=== PATIENT | male | born 1960 | race Caucasian/White ===

== ENCOUNTER 2025-06-07 16:21 | Observation (INO) ==
--- NOTE | 2025-06-07 16:44 | Emergency Department Note ---
History of Present Illness General Chief complaint: Abdominal Pain Stated complaint: ABD PAIN Time Seen by Provider: 06/07/25 16:42 History of Present Illness Maximum Pain Intensity: 6 This is a 65-year-old male that presents to the emergency department via private vehicle with complaints of "abdominal pain". The patient notes that today he awoke with "massive" lower abdominal discomfort. He has never had this before. He felt diaphoretic and hot. He then notes the lower abdominal pain has somewhat improved but currently still 6/10. It does increase with movement and walking. No chest pain. No shortness of breath. Patient denies any fevers, chills, nausea or vomiting. There is no chest pain or shortness of breath. No blood in the stool. Home Medications Medication Instructions Recorded Confirmed Type esomeprazole magnesium 40 mg 40 mg PO QAM 05/27/19 06/07/25 History capsule,delayed release multivitamin with minerals-folic 200 mcg PO QAM 05/27/19 06/07/25 History acid 200 mcg chewable tablet (Adult Multivitamin Gummies) metoprolol succinate 50 mg 75 mg PO QAM 12/24/21 06/07/25 History tablet,extended release 24 hr diltiazem HCl 300 mg 300 mg PO QAM 06/07/25 06/07/25 History capsule,extended release 24 hr losartan 25 mg tablet 12.5 mg PO QAM 06/07/25 06/07/25 History Allergies Allergy/AdvReac Type Severity Reaction Status Date / Time No Known Allergies Verified 06/07/25 19:34 Past Med/Surg History Problem List (Updated 06/07/25 @ 22:03 by Wilfred Hurley PA-C) History of atrial fibrillation COPD (chronic obstructive pulmonary disease) Hypertension Acute diverticulitis (Acute) Contusion of abdominal wall (Acute) Medical History Medial meniscus tear No pertinent family history Surgical History No pertinent past surgical history Social History Smoking Status: Current every day smoker Tobacco Type: Cigarettes Preferred Language: Yoruba Feels Safe at Home: Yes Review of Systems A total of 10 systems reviewed and were otherwise negative Physical Exam Vital Signs Vital Signs - 24 hr 06/07/25 16:33 06/07/25 17:12 06/07/25 17:43 Temperature 36.7 C Temperature Source Oral Pulse Rate 101 H 95 H Pulse Rate [Apical] 94 H Respiratory Rate 20 16 Respiratory Effort / Characteristics Non-Labored Non-Labored Spontaneous Respiratory Depth Normal Normal Respiratory Pattern Regular Blood Pressure 144/88 H Blood Pressure [Right Arm] 140/95 Blood Pressure Mean 106 Blood Pressure Mean [Right Arm] 110 Blood Pressure Position [Right Arm] Lying Pulse Oximetry 96 95 Oxygen Delivery Method Room Air Room Air Sepsis Recent Fever Within 48 Hours No Sepsis New/Unexplained Change in Mental Status No Sepsis Action Taken by Nursing No Action Required VITAL SIGNS - Vital signs and nursing notes were reviewed. Stable and afebrile. GENERAL -65-year-old male appearing his stated age who is in no acute distress. Communicates well with provider and answers questions appropriately. SKIN - Without rashes. No meningeal or petechial rash. HEAD - NC/AT. EYES - PERRL with EOMI bilaterally. Sclera anicteric. EARS - No deformities of external structures noted on gross examination bilaterally. NOSE - Midline and without cyanosis. MOUTH/OROPHARYNX - Without perioral cyanosis. NECK - Neck with FROM.No nuchal rigidity. LUNGS - CTA CARDIAC - RRR ABDOMEN - Abdominal contour normal without pulsations or visible masses. BS normoactive all four quadrants. There is lower abdominal tenderness to palpation. No guarding. No rigidity. No palpable masses, hepatosplenomegaly, or ascites noted. EXTREMITIES - No clubbing or peripheral cyanosis. +5/5 strength noted in UE/LE bilaterally. NEUROLOGIC - Cranial nerves II through XII grossly intact. PSYCH -alert, oriented and pleasant on exam. Course Administered Medications Heparin Sodium (Porcine) (Heparin Sod 5,000 Unit/0.5 Ml Vial) 5,000 units SQ Q12 FREYA Stop: 07/07/25 20:59 Last Admin: 06/07/25 21:59 Dose: Not Given Documented By: BERNY Potassium Chloride/Sodium Chloride (Normal Saline W/20 Meq Kcl) 20 meq in 1,000 mls @ 125 mls/hr IV .Q8H FREYA Stop: 06/08/25 20:29 Last Admin: 06/07/25 21:58 Dose: 125 mls/hr Documented By: BERNY Discontinued Medications Sodium Chloride (Nss) 500 mls @ 500 mls/hr IV .Q1H ONE Stop: 06/07/25 17:54 Last Infusion: 06/07/25 20:53 Dose: Infused Documented By: Admin: 06/07/25 17:45 Dose: 500 mls/hr Documented By: JEIMY Piperacillin Sod/Tazobactam Sod (Zosyn) 4.5 gm in 100 mls @ 200 mls/hr IV NOW ONE; Protocol Stop: 06/07/25 19:33 Last Infusion: 06/07/25 20:53 Dose: Infused Documented By: Admin: 06/07/25 19:45 Dose: 200 mls/hr Documented By: SPRING Ioversol (Optiray 320 100ml) 92 ml IV ONCE ONE Stop: 06/07/25 18:06 Last Admin: 06/07/25 18:05 Dose: 92 ml Documented By: WALLACE Medical Decision Making Laboratory Data 06/07/25 16:34 06/07/25 16:34 Lab Results 06/07/25 Range/Units 16:34 WBC 17.04 H (4.8-10.8) K/ul RBC 4.65 L (4.70-6.10) M/uL Hgb 15.5 (14.0-18.0) g/dl Hct 43.1 (42.0-52.0) % MCV 92.7 (80.0-100.0) fL MCH 33.3 (25.0-34.0) pg MCHC 36.0 (32.0-36.0) g/dL RDW Std Deviation 41.7 (36.4-46.3) fL RDW Coeff of Kallie 12.3 (11.5-14.5) % Plt Count 289 (130-400) K/uL MPV 9.0 L (9.4-12.4) fL Immature Gran % (Auto) 0.6 % Neut % (Auto) 74.2 % Lymph % (Auto) 14.0 % Rowan % (Auto) 10.7 % Eos % (Auto) 0.2 % Baso % (Auto) 0.3 % Neut # (Auto) 12.64 H (1.40-6.50) K/uL Lymph # (Auto) 2.39 (1.20-3.40) K/uL Rowan # (Auto) 1.83 H (0.11-0.59) K/uL Eos # (Auto) 0.03 (0.00-0.50) K/uL Baso # (Auto) 0.05 (0.00-0.20) K/uL Immature Gran # (Auto) 0.10 (0.01-0.20) K/uL PT 10.5 (9.0-12.0) Seconds INR 1.0 (0.9-1.1) APTT 27 (21-31) Seconds PTT Ratio 1.0 Sodium 140 (136-145) mmol/L Potassium 3.6 (3.5-5.1) mmol/L Chloride 103 (98-107) mmol/L Carbon Dioxide 28 (21-32) mmol/L Anion Gap 9 (3-11) BUN 6 (6-23) mg/dl Creatinine 0.76 (0.6-1.4) mg/dl Est Cr Clr Drug Dosing 83.0 ml/min eGFR 101.00 BUN/Creatinine Ratio 7.9 L (10-20) Glucose 115 H (70-99(Fasting)) mg/dl Calcium 8.8 (8.6-10.3) mg/dl Total Bilirubin 1.0 (0.2-1.0) mg/dl AST 37 (13-39) U/L ALT 44 (7-52) U/L Alkaline Phosphatase 69 (34-104) U/L Total Protein 6.5 (6.0-8.3) gm/dl Albumin 3.8 (3.4-5.0) gm/dl Globulin 2.7 (2.5-4.0) gm/dl Albumin/Globulin Ratio 1.4 (0.9-2) Imaging Data Radiologist's Impression: Abdomen/Pelvis CT 06/07/25 16:55 EXAMINATION: CT of the abdomen and pelvis performed after the administration of IV contrast TECHNIQUE: Helical CT images from the lung bases through the symphysis pubis were obtained with contrast. Coronal and sagittal reformatted images were generated at a workstation for further assessment. Dose reduction techniques were achieved by using automatic exposure control and/or adjustment of mA and/or kV according to patient size and/or use of iterative reconstruction technique. COMPARISON: None HISTORY: Abdominal pain FINDINGS: Lower chest: No consolidation. No pleural effusion or pneumothorax. Liver: No suspicious liver lesions. Portal veins appear patent. Gallbladder: No gallstones. No evidence of acute cholecystitis. Spleen: Normal size. Pancreas: No suspicious pancreatic lesions. The pancreatic duct is not dilated. Adrenal glands: No adrenal nodules. Kidneys: No hydronephrosis or obstructing renal stones. Bladder / Pelvic organs: Unremarkable. Bowel: No bowel obstruction. Prominent wall thickening and inflammatory fat stranding noted throughout the sigmoid colon where there are inflamed diverticula identified. The findings are compatible with acute diverticulitis. No associated free air or abscess to suggest perforation. The appendix is not visualized. Lymph nodes: No retroperitoneal, mesenteric, or pelvic lymphadenopathy. Peritoneum / Retroperitoneum: No free fluid or air within the abdomen. Vessels: No infrarenal aortic aneurysm. Bones and soft tissues: No suspicious lesion in the bones. IMPRESSION: Prominent wall thickening and inflammatory fat stranding noted throughout the sigmoid colon where there are inflamed diverticula identified. The findings are compatible with acute diverticulitis. No associated free air or abscess to suggest perforation. Electronically signed by Jignesh Patricia 06-07-2025 6:49 PM MDM Narrative Patient was seen and evaluated as above in room A09. Review was performed of triage nursing notes and vital signs. After obtaining a thorough history and physical examination the above work up was performed. Patient presents to us today for evaluation of abdominal pain. There is associated decreased oral intake today. Options of care were discussed with the patient. IV access was established. Labs were drawn. He was offered analgesia and respectfully declined. There is leukocytosis 17.04. No anemia. No emergent metabolic disturbance. Hyperglycemia 115. Urinalysis is pending. CT scan of the abdomen and pelvis was performed and reveals diverticulitis as above. No free air. No abscess. Noting the rather rapid onset and severe pain earlier today with leukocytosis and tenderness in the lower abdomen I do believe that IV antibiotics at least initially would be warranted pending the patient's clinical course. Patient in agreement with this plan. Case discussed with the hospitalist service. Please refer to further documentation regarding his stay. In the evaluation and treatment of this patient the following differential diagnoses were entertained: UTI, pyelonephritis, diverticulitis, perforation, abscess, among others Impression & Plan Acute diverticulitis Discharge Plan Visit Data Chief Complaint: Abdominal Pain Stated Complaint: ABD PAIN ED Provider: Serafin Burden ED Midlevel Provider: Wilfred Hurley Discharge Problem: Acute diverticulitis Patient Disposition: Admitted As Inpatient Condition: Good Discharge Instructions Interventions: ED Discharge Assessment Last Done: 06/07/25 21:05
[2025-06-07 17:01] LABS: Hematocrit (blood only) 43.1 % (42.0-52.0); Hemoglobin 15.5 g/dl (14.0-18.0); Immature Granulocytes # (auto) 0.10 K/uL (0.01-0.20); Immature Granulocytes % (auto) 0.6 %; Mean Corpuscular Hemoglobin 33.3 pg (25.0-34.0); Mean Corpuscular Volume 92.7 fL (80.0-100.0); Platelet Count 289 K/uL (130-400); RDW Standard Deviation 41.7 fL (36.4-46.3); Red Blood Count 4.65 M/uL (4.70-6.10); White Blood Count 17.04 K/ul (4.8-10.8)
[2025-06-07 17:26] LABS: Alanine Aminotransferase 44.0 U/L (7-52); Albumin Globulin Ratio 1.4 (0.9-2); Alkaline Phosphatase 69.0 U/L (34-104); Anion Gap 9.0 (3-11); Bilirubin,Total 1.0 mg/dl (0.2-1.0); Blood Urea Nitrogen 6.0 mg/dl (6-23); Calcium 8.8 mg/dl (8.6-10.3); Carbon Dioxide 28.0 mmol/L (21-32); Chloride 103.0 mmol/L (98-107); Creatinine Clr Calc Pharmacy 83.0 ml/min; Globulin 2.7 gm/dl (2.5-4.0); Glucose 115.0 mg/dl (70-99(Fasting)); Potassium 3.6 mmol/L (3.5-5.1); Sodium 140.0 mmol/L (136-145); Total Protein 6.5 gm/dl (6.0-8.3)
[2025-06-07 17:29] LABS: INR 1.0 (0.9-1.1); Partial Thromboplastin Time 27 Seconds (21-31); Prothrombin Time 10.5 Seconds (9.0-12.0)
[2025-06-07] MEDS: SODIUM CHLORIDE 0.9% 500 ML IV ONE (17:45)
[2025-06-07] MEDS: OPTIRAY 320 100ml IV ONE (18:05)
--- NOTE | 2025-06-07 18:50 | CT Scan Report ---
EXAMINATION: CT of the abdomen and pelvis performed after the administration of IV contrast TECHNIQUE: Helical CT images from the lung bases through the symphysis pubis were obtained with contrast. Coronal and sagittal reformatted images were generated at a workstation for further assessment. Dose reduction techniques were achieved by using automatic exposure control and/or adjustment of mA and/or kV according to patient size and/or use of iterative reconstruction technique. COMPARISON: None HISTORY: Abdominal pain FINDINGS: Lower chest: No consolidation. No pleural effusion or pneumothorax. Liver: No suspicious liver lesions. Portal veins appear patent. Gallbladder: No gallstones. No evidence of acute cholecystitis. Spleen: Normal size. Pancreas: No suspicious pancreatic lesions. The pancreatic duct is not dilated. Adrenal glands: No adrenal nodules. Kidneys: No hydronephrosis or obstructing renal stones. Bladder / Pelvic organs: Unremarkable. Bowel: No bowel obstruction. Prominent wall thickening and inflammatory fat stranding noted throughout the sigmoid colon where there are inflamed diverticula identified. The findings are compatible with acute diverticulitis. No associated free air or abscess to suggest perforation. The appendix is not visualized. Lymph nodes: No retroperitoneal, mesenteric, or pelvic lymphadenopathy. Peritoneum / Retroperitoneum: No free fluid or air within the abdomen. Vessels: No infrarenal aortic aneurysm. Bones and soft tissues: No suspicious lesion in the bones. IMPRESSION: Prominent wall thickening and inflammatory fat stranding noted throughout the sigmoid colon where there are inflamed diverticula identified. The findings are compatible with acute diverticulitis. No associated free air or abscess to suggest perforation. Electronically signed by Jignesh Patricia 06-07-2025 6:49 PM
[2025-06-07] MEDS: PIPERACILLIN/TAZOBACTAM 4.5 GM/100 ML BAG IV ONE (19:45)
[2025-06-07] MEDS ORDERED: HYDROmorphone INJ 0.5 MG/0.5 ML SYR IV PRN (20:22)
--- NOTE | 2025-06-07 20:22 | History & Physical Report ---
Date of Service June 07, 2025 Assessment & Plan (1) Acute diverticulitis: Plan: Woke up with severe lower abdominal pain with diarrhea CT of the abdomen pelvis showed prominent wall thickening and inflammatory fat stranding throughout the sigmoid colon and they are wire inflamed diverticula consistent with acute diverticulitis without any abscess and/or perforation No sepsis -Leukocytosis of 17.04 Will be kept n.p.o. and intravenous fluid will be given IV pain medications and intravenous Zosyn Condition is stable if worsened will need surgery/GI evaluation Likely discharge in 2 to 3 days on oral antibiotic (2) Hypertension: Plan: Blood pressure remains stable and will continue with his home medication (3) COPD (chronic obstructive pulmonary disease): Plan: Does not take any inhalers Continues to smoke on a reduced number Strongly advised to quit smoking Does not want to use nicotine patch (4) History of atrial fibrillation: Plan: Remote history of atrial fibrillation/PSVT Will get EKG but denies any symptoms of that DVT prophylaxis Subcu heparin CODE STATUS Full History of Present Illness Chief Complaint: Acute lower abdominal pain since 8 AM Primary Care Provider: Familia Torres DO He is a 65-year-old male with significant past medical history of emphysema with lung nodule, hypertension, history of atrial fibrillation/PSVT and also IBS apparently woke up this morning with severe lower abdominal pain. The pain was very severe and was associated with sweating and feeling cold. He had bowel movement with loose stool 3 times since then. The pain did not go away and he does feel to be colicky without any nausea and/or vomiting. No prior history of diverticulitis and he denies to have any history of constipation. His CAT scan of the abdomen pelvis showed acute sigmoid diverticulitis without perforation and/or abscess formation. He was started with intravenous Zosyn and was admitted to medical telemetry unit for continuation of care. Allergies Allergy/AdvReac Type Severity Reaction Status Date / Time No Known Allergies Verified 06/07/25 19:34 Home Medications Medication Instructions Recorded Confirmed Type esomeprazole magnesium 40 mg 40 mg PO QAM 05/27/19 06/07/25 History capsule,delayed release multivitamin with minerals-folic 200 mcg PO QAM 05/27/19 06/07/25 History acid 200 mcg chewable tablet (Adult Multivitamin Gummies) metoprolol succinate 50 mg 75 mg PO QAM 12/24/21 06/07/25 History tablet,extended release 24 hr diltiazem HCl 300 mg 300 mg PO QAM 06/07/25 06/07/25 History capsule,extended release 24 hr losartan 25 mg tablet 12.5 mg PO QAM 06/07/25 06/07/25 History Past Med/Surg History Problem List (Updated 06/07/25 @ 20:18 by Genaro Carreno MD) History of atrial fibrillation COPD (chronic obstructive pulmonary disease) Hypertension Acute diverticulitis Contusion of abdominal wall (Acute) Medical History Medial meniscus tear No pertinent family history Surgical History No pertinent past surgical history Social History Smoking Status: Current every day smoker Tobacco Type: Cigarettes Preferred Language: [place]al[place] Feels Safe at Home: Yes Review of Systems Review of Systems: All systems reviewed and unremarkable except as noted below Physical Exam Physical Exam: Lying in bed without any acute distress Constitutional: well developed, well nourished and + ill appearing Eyes: PERRL, conjunctivae normal, anicteric sclerae ENMT: external ear and nose normal, oropharynx normal Neck: trachea midline, no thyromegaly Respiratory: no respiratory distress Auscultation: + diminished lung sounds; no crackles and no wheezes Gastrointestinal (Abdomen): Inspection/Auscultation: normal bowel sounds; abdomen not distended Percussion/Palpation: + abdomen tender (Left lower quadrant without guarding but has rebound tenderness) and abdomen soft Musculoskeletal: No acute arthritis involving any of the joint Neurologic: normal touch/pain/proprioception and moves all extremities; no focal motor deficits Psychiatric: A+Ox3, euthymic affect Lymphatic: no cervical or axillary lymphadenopathy Results & Data Results & Data Vital Signs (Past 12 Hours) Vital Signs Temp Pulse Pulse Resp BP BP Pulse Ox 06/07/25 17:43 94 H 16 140/95 95 06/07/25 17:12 95 H 06/07/25 16:33 36.7 C 101 H 20 144/88 H 96 O2 Del Method 06/07/25 17:43 Room Air 06/07/25 17:12 06/07/25 16:33 Room Air Laboratory Results Short CBC 06/07/25 Range/Units 16:34 WBC 17.04 H (4.8-10.8) K/ul Hgb 15.5 (14.0-18.0) g/dl Hct 43.1 (42.0-52.0) % Plt Count 289 (130-400) K/uL BMP 06/07/25 16:34 Sodium 140 Potassium 3.6 Chloride 103 Carbon Dioxide 28 BUN 6 Creatinine 0.76 Glucose 115 H Calcium 8.8 Liver Function 06/07/25 Range/Units 16:34 Total Bilirubin 1.0 (0.2-1.0) mg/dl AST 37 (13-39) U/L ALT 44 (7-52) U/L Alkaline Phosphatase 69 (34-104) U/L Albumin 3.8 (3.4-5.0) gm/dl Medications Administered Current Inpatient Medications Heparin Sodium (Porcine) (Heparin Sod 5,000 Unit/0.5 Ml Vial) 5,000 units SQ Q12 FREYA Stop: 07/07/25 20:59 Piperacillin Sod/Tazobactam Sod (Zosyn) 4.5 gm in 100 mls @ 25 mls/hr IV Q8H FREYA; Protocol Stop: 06/17/25 20:14 Code Status & VTE Plan VTE Prophylaxis Plan VTE Prophylaxis will be ordered: Yes
[2025-06-07] MEDS ORDERED: MELATONIN 3 MG TAB PO PRN (21:11)
[2025-06-07] MEDS: NSS + 20MEQ KCL 20 MEQ/1,000 ML BAG IV SCH (21:58)
[2025-06-07] MEDS: HEPARIN SOD 5,000 UNIT/0.5 ML VIAL SQ SCH (21:59)
[2025-06-07 22:07] LABS: Appearance Urine Clear (Clear); Glucose Urine UA Negative (Negative)
[2025-06-07 22:15] LABS: Bacteria Urine Automated None Seen (None Seen); Cast Urine Automated 0-2 /lpf (0-2); Epithelial Cell Urine Auto 0-2 /hpf (0-2); RBC Urine Automated 0-2 /hpf (0-2); WBC Urine Automated 0-5 /hpf (0-5)
[2025-06-08] MEDS: ZOLPIDEM TARTRATE 5 MG TAB PO STA ×2 (00:04→23:01)
[2025-06-08] MEDS: PIPERACILLIN/TAZOBACTAM 4.5 GM/100 ML BAG IV SCH (00:04)
[2025-06-08] MEDS: ZOLPIDEM TARTRATE 5 MG TAB ONE (00:04)
[2025-06-08 07:27] LABS: Hematocrit (blood only) 38.7 % (42.0-52.0); Hemoglobin 14.2 g/dl (14.0-18.0); Immature Granulocytes # (auto) 0.03 K/uL (0.01-0.20); Immature Granulocytes % (auto) 0.3 %; Mean Corpuscular Hemoglobin 34.2 pg (25.0-34.0); Mean Corpuscular Volume 93.3 fL (80.0-100.0); Platelet Count 250 K/uL (130-400); RDW Standard Deviation 41.2 fL (36.4-46.3); Red Blood Count 4.15 M/uL (4.70-6.10); White Blood Count 9.40 K/ul (4.8-10.8)
[2025-06-08 07:35] LABS: Anion Gap 8.0 (3-11); Blood Urea Nitrogen 4.0 mg/dl (6-23); Calcium 8.1 mg/dl (8.6-10.3); Carbon Dioxide 26.0 mmol/L (21-32); Chloride 106.0 mmol/L (98-107); Creatinine Clr Calc Pharmacy 89.0 ml/min; Glucose 97.0 mg/dl (70-99(Fasting)); Magnesium 1.4 mg/dl (1.7-2.4); Potassium 3.3 mmol/L (3.5-5.1); Sodium 140.0 mmol/L (136-145)
[2025-06-08] MEDS: LOSARTAN POTASSIUM 25 MG TAB PO SCH (07:56)
[2025-06-08] MEDS: METOPROLOL SUCC 25MG EXT REL TAB PO SCH (07:57)
[2025-06-08] MEDS: MULTIVITAMIN TAB PO SCH (07:57)
[2025-06-08] MEDS ORDERED: ACETAMINOPHEN 325 MG TAB PO PRN (09:13)
[2025-06-08] MEDS: MAGNESIUM SULFATE / D5W 1 GM/100 ML BAG IV SCH (10:12)
[2025-06-08] MEDS: POTASSIUM CHLORIDE CRTAB 20 MEQ TABCR PO STA (10:13)
--- NOTE | 2025-06-08 10:52 | Hospitalist Progress Note ---
Date of Service June 08, 2025 Assessment & Plan (1) Acute diverticulitis: (2) Electrolyte abnormality: (3) Hypertension: (4) COPD (chronic obstructive pulmonary disease): (5) Paroxysmal atrial fibrillation: Plan Patient 65-year-old gentleman with acute diverticulitis, significantly improved Replace electrolytes Continue IV antibiotics Advance diet Check labs in a.m., anticipate discharge tomorrow if continues to improve Admission and Anticipated Discharge Date Admission Date: June 07, 2025 Subjective Patient significantly improved. Pain is better. Has not required any pain medications. Physical Exam Physical Exam: Constitutional: Alert, nontoxic HEENT: Mucous membranes moist. Lungs: Clear to auscultation, decreased, no wheezes rales or rhonchi CV: S1-S2, regular Abdomen: Soft, mild tenderness left lower quadrant with some very mild rebound. No guarding, no rigidity Extremities: No significant edema Neuro: No focal deficits Psych: Cooperative, normal mood Results & Data Results & Data Vital Signs (Past 12 Hours) Vital Signs Temp Pulse Pulse Resp BP Pulse Ox O2 Del Method 06/08/25 07:59 36.9 C 99 H 20 144/96 H 95 Room Air 06/08/25 07:54 36.5 C 99 H 137/94 95 Room Air 06/08/25 07:09 75 06/08/25 03:27 36.6 C 86 18 145/89 H 95 Room Air Diagnostic Findings Buddy[employer] Personally reviewed EKG, sinus rhythm WBCs 9.4, improved Hemoglobin 14.2 Potassium 3.3 Creatinine 0.71 Magnesium 1.4
[2025-06-08] MEDS: POTASSIUM CHLORIDE CRTAB 20 MEQ TABCR PO SCH (15:05)
[2025-06-09 07:07] LABS: Anion Gap 6.0 (3-11); Blood Urea Nitrogen 3.0 mg/dl (6-23); Calcium 8.6 mg/dl (8.6-10.3); Carbon Dioxide 25.0 mmol/L (21-32); Chloride 107.0 mmol/L (98-107); Creatinine Clr Calc Pharmacy 86.6 ml/min; Glucose 113.0 mg/dl (70-99(Fasting)); Magnesium 2.2 mg/dl (1.7-2.4); Potassium 3.8 mmol/L (3.5-5.1); Sodium 138.0 mmol/L (136-145)
[2025-06-09 08:31] VITALS: BP 136/89; RESP 17; TEMP 97.7; O2SAT 95
--- NOTE | 2025-06-09 08:47 | Discharge Summary ---
Discharge Summary Date of Service June 09, 2025 Principal Dx & Hospital Course #1 = Principal Diagnosis (1) Acute diverticulitis: (2) Electrolyte abnormality: (3) Hypertension: (4) COPD (chronic obstructive pulmonary disease): (5) Paroxysmal atrial fibrillation: Plan Patient 65-year-old gentleman with known history of diverticulosis presented to the emergency room with acute onset of abdominal pain. In the emergency room imaging was consistent with diverticulitis and the patient had some slightly elevated WBCs and electrolyte abnormalities. Patient was admitted to hospital. He was put on bowel rest. Given IV fluid resuscitation. His electrolytes were replaced. By the following morning and significant improvement of his symptoms. He was continued on IV antibiotics and his diet was advanced. He tolerated thi s without difficulty. On the morning of discharge vital signs are stable. Pain essentially resolved. He was tolerating his diet. He been transition to oral antibiotics and discharged home to follow-up with his outpatient PCP. Notes For Next Care Provider Consider referral to outpatient GI to update colonoscopy Medication Changes From Visit Augmentin for treatment of diverticulitis Admission HPI Per Admitting Provider He is a 65-year-old male with significant past medical history of emphysema with lung nodule, hypertension, history of atrial fibrillation/PSVT and also IBS apparently woke up this morning with severe lower abdominal pain. The pain was very severe and was associated with sweating and feeling cold. He had bowel movement with loose stool 3 times since then. The pain did not go away and he does feel to be colicky without any nausea and/or vomiting. No prior history of diverticulitis and he denies to have any history of constipation. His CAT scan of the abdomen pelvis showed acute sigmoid diverticulitis without perforation and/or abscess formation. He was started with intravenous Zosyn and was admitted to medical telemetry unit for continuation of care. Admission Exam Per Admitting Provider See H&P Discharge Exam Constitutional: Alert HEENT: Mucous membranes moist. Lungs: Clear to auscultation, decreased, no wheezes rales or rhonchi CV: S1-S2, regular Abdomen: Soft, minimal tenderness left lower quadrant, no guarding, no rigidity, no rebound Extremities: No significant edema Neuro: No focal deficits Psych: Cooperative, normal mood Updated Medication List Medication Instructions Recorded Confirmed Type esomeprazole magnesium 40 mg 40 mg PO QAM 05/27/19 06/07/25 History capsule,delayed release multivitamin with minerals-folic 200 mcg PO QAM 05/27/19 06/07/25 History acid 200 mcg chewable tablet (Adult Multivitamin Gummies) metoprolol succinate 50 mg 75 mg PO QAM 12/24/21 06/07/25 History tablet,extended release 24 hr diltiazem HCl 300 mg 300 mg PO QAM 06/07/25 06/07/25 History capsule,extended release 24 hr losartan 25 mg tablet 12.5 mg PO QAM 06/07/25 06/07/25 History amoxicillin 875 mg-potassium 1 tab PO BID #14 tabs 06/09/25 Rx clavulanate 125 mg tablet Hospital Stay Data Consultations 06/07/25 19:13 ED Decision to Admit Stat Diagnostic Imagining Performed 06/07/25 16:55 CT abd pelvis IV con only Stat Reviewed imaging, laboratory and diagnostic studies. Pertinent findings as below. Electrolytes improved Potassium 3.8 Creatinine 0.73 Magnesium 2.2 Calcium 8.6 EKG sinus rhythm Pending Results Patient Have Any Pending Studies at Discharge: No Discharge Instructions Given to Patient (Per Discharging Provider) Discussed with your PCP referral to GI to update your colonoscopy You may use [id number] Tylenol for any pain Total Time Total Time Spent Total Time Spent (In Minutes): 25
[2025-06-09 09:51] VITALS: PULSE 84
--- NOTE | 2025-06-11 09:26 | Electrocardiogram Report ---
Test Reason : Blood Pressure : */* mmHG Vent. Rate : 95 BPM Atrial Rate : 95 BPM P-R Int : 166 ms QRS Dur : 94 ms QT Int : 364 ms P-R-T Axes : 77 79 57 degrees QTcB Int : 457 ms Normal sinus rhythm Normal ECG When compared with ECG of 21-May-2010 15:57, No significant change Confirmed by Marco Candelaria ([id number]) on 06/11/2025 9:25:49 AM Referred By: REFERRED SELF Confirmed By: Marco Candelaria
== END 2025-06-09 11:41 | disposition home or self-care (01) | DRG 392 ==
LOC: ED 16:21 → SUATTDRO 19:59 → INTOOBSV 19:59 → 2N 19:59

== ENCOUNTER 2025-08-01 15:11 | Observation (INO) ==
[2025-08-01] MEDS: SODIUM CHLORIDE 0.9% 1,000 ML IV ONE (15:44)
--- NOTE | 2025-08-01 15:44 | Emergency Department Note ---
Impression & Plan Diverticulitis ED Provider Note Provider: Florin Tinsley MD CHIEF COMPLAINT: Left lower abdominal pain HISTORY OF PRESENT ILLNESS: Patient is a 65-year-old gentleman history of COPD, hypertension, A-fib, and diverticulitis in May of the year presenting here today reporting over the last 2 to 3 days experiencing increasing left lower quadrant pain. No bloody stools. No vomiting but some decreased appetite. No sick contacts. States it feels similar to when he presented in May with diverticulitis. Completed course of antibiotics then but states symptoms have mildly lingered since then. No urinary issues reported. PAST MEDICAL HISTORY: As noted above MEDICATIONS: Reviewed home medications SOCIAL HISTORY: Non-smoker PHYSICAL EXAM: GENERAL: alert and oriented in no acute distress on stretcher Head: normocephalic and atraumatic EYES: No injection, discharge or icterus. NECK: Trachea midline. ENT: Mucous membranes pink and moist. LUNGS: Airway patent. No retractions or tachypnea HEART: Regular rate and rhythm. ABDOMEN: Soft without masses but some mild to moderate left lower quadrant tenderness. No right-sided tenderness. SKIN: Acyanotic, warm, dry, without rashes EXTREMITIES: Without swelling, tenderness or deformity NEUROLOGICAL: No focal deficits. No aphasia. No facial droop or slurred speech. Ambulatory. PDMP was checked without noted issue. Patient's laboratory studies and imaging reviewed. Differential includes Appendicitis, testicular torsion, infections, diverticulitis, UTI, obstruction, mesenteric ischemia, aortic pathology, inflammatory bowel disease, renal colic, PUD, pancreatitis, biliary pathology, hernia, volvulus, constipation, as well as other pathologies. IMPRESSION/MEDICAL DECISION MAKING: Patient history of diverticulitis states this feels similar. Some left lower quadrant tenderness without peritoneal. Vitals are reassuring upon arrival without significant hypotension, tachycardia, fever, or hypoxia. Declines pain medicine here. Given a small amount of IV fluid for hydration as he is had decreased food intake but has been trying to hydrate. Sent for CT scan to evaluate for possible recurrent diverticulitis or other abnormality. Denies significant waxing waning symptoms or flank discomfort and lower suspicion for kidney stone. Denies any upper pain and I doubt this is cardiac or pulmonary in nature. Blood work here with a leukocytosis of 18.6. No anemia. No significant electrolyte abnormality or signs of renal dysfunction. No transaminitis or lipase elevation concerning for hepatitis or pancreatitis. CT scan of the abdomen pelvis with evidence of diverticulitis per radiology report. Decreased inflammatory stranding from prior. Notes of stomach wall thickening are made in the report as well. Discussed with the patient. States has had previous follow- up and biopsies regarding stomach in the past and does take a PPI. IV dose of Zosyn ordered for the diverticulitis. Discussed with him these findings. Discussed options of observation for IV therapy versus initiation of oral antibiotic therapy and outpatient GI follow-up and strict return precautions. Again he does not appear ill or septic or in severe discomfort. There is no report of perforation or abscess at this time. Long discussion with him and family. Concerns obviously given the recent recurrence and we will have the hospitalist evaluate for observation. DIAGNOSIS: Diverticulitis, stomach wall thickening DISPOSITION: Hospitalist will evaluate Patient was agreeable with this plan. Past Med/Surg History Problem List (Updated 08/01/25 @ 17:34 by Florin Tinsley M.D.) Diverticulitis (Acute) Emphysema of lung Tobacco abuse Pulmonary nodule Paroxysmal atrial fibrillation Electrolyte abnormality History of atrial fibrillation COPD (chronic obstructive pulmonary disease) Hypertension Acute diverticulitis (Acute) Contusion of abdominal wall (Acute) Medical History Medial meniscus tear No pertinent family history Surgical History No pertinent past surgical history Social History (Updated 06/28/25 @ 16:16 by Brenna Rizzo RN) Smoking Status: Never smoker Tobacco Type: Cigarettes packs per day: 0.50; Cigarettes Per Day: 7; Do You Dip or Chew Tobacco: Yes; Hx Alcohol Use: Yes Alcohol type: beer Hx Substance Use: No Preferred Language: Greenlandic 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 Required: No Beliefs That Will Affect Care: None Current Living Situation: Spouse Feels Safe at Home: Yes Allergies Allergies Allergy/AdvReac Type Severity Reaction Status Date / Time No Known Allergies Allergy Verified 08/01/25 16:52 Home Meds Home Medications Medication Instructions Recorded Confirmed esomeprazole magnesium 40 mg 40 mg PO QAM 05/27/19 08/01/25 capsule,delayed release multivitamin with minerals-folic 200 mcg PO QAM 05/27/19 08/01/25 acid 200 mcg chewable tablet (Adult Multivitamin Gummies) metoprolol succinate 50 mg 75 mg PO QAM 12/24/21 08/01/25 tablet,extended release 24 hr diltiazem HCl 300 mg 300 mg PO QAM 06/07/25 08/01/25 capsule,extended release 24 hr losartan 25 mg tablet 12.5 mg PO QAM 06/07/25 08/01/25 magnesium aspart,citrate,oxide 400 mg PO DAILY 06/28/25 08/01/25 potassium chloride 20 mEq 20 meq PO DAILY 06/28/25 08/01/25 tablet,extended release sildenafil 100 mg tablet 100 mg PO DIRECTED PRN Sexual 08/01/25 08/01/25 Activity Results & Data (ED) Vital Signs Vital Signs - 24 hr 08/01/25 15:15 08/01/25 15:26 08/01/25 15:26 Temperature 36.5 C Temperature Source Oral Pulse Rate 101 H 90 Pulse Rate [Apical] 90 Pulse Rhythm Regular Regular Pulse Rhythm [Apical] Regular Pulse Strength Normal Pulse Strength [Apical] Normal Respiratory Rate 20 24 20 Respiratory Effort / Characteristics Non-Labored Spontaneous Non-Labored Spontaneous Respiratory Depth Normal Normal Respiratory Pattern Regular Regular Blood Pressure 124/80 Blood Pressure [Right Arm] 139/97 Blood Pressure Mean 94 Blood Pressure Mean [Right Arm] 111 Blood Pressure Position Sitting Blood Pressure Position [Right Arm] Sitting Pulse Oximetry 97 95 96 Oxygen Delivery Method Room Air Room Air Room Air Sepsis Recent Fever Within 48 Hours No Sepsis New/Unexplained Change in Mental Status No Sepsis Action Taken by Nursing No Action Required 08/01/25 15:45 08/01/25 17:11 08/01/25 17:11 Temperature Temperature Source Pulse Rate 90 Pulse Rate [Apical] 89 Pulse Rhythm Pulse Rhythm [Apical] Regular Regular Pulse Strength Pulse Strength [Apical] Normal Normal Respiratory Rate 16 Respiratory Effort / Characteristics Non-Labored Spontaneous Non-Labored Spontaneous Respiratory Depth Normal Normal Respiratory Pattern Regular Regular Blood Pressure Blood Pressure [Right Arm] 145/96 H Blood Pressure Mean Blood Pressure Mean [Right Arm] 112 Blood Pressure Position Blood Pressure Position [Right Arm] Lying Lying Pulse Oximetry 95 Oxygen Delivery Method Room Air Room Air Sepsis Recent Fever Within 48 Hours Sepsis New/Unexplained Change in Mental Status Sepsis Action Taken by Nursing Laboratory Data 08/01/25 15:30 08/01/25 15:30 Lab Results 08/01/25 08/01/25 Range/Units 15:30 15:40 WBC 18.67 H (4.8-10.8) K/ul RBC 4.46 L (4.70-6.10) M/uL Hgb 15.1 (14.0-18.0) g/dl POC Hgb 15.6 (14.0-18.0) g/dl Hct 41.4 L (42.0-52.0) % POC Hct 46 (42-52) % MCV 92.8 (80.0-100.0) fL MCH 33.9 (25.0-34.0) pg MCHC 36.5 H (32.0-36.0) g/dL RDW Std Deviation 41.9 (36.4-46.3) fL RDW Coeff of Kallie 12.1 (11.5-14.5) % Plt Count 327 (130-400) K/uL MPV 8.6 L (9.4-12.4) fL Immature Gran % (Auto) 0.3 % Neut % (Auto) 80.5 % Lymph % (Auto) 8.9 % Rapides % (Auto) 9.6 % Eos % (Auto) 0.2 % Baso % (Auto) 0.5 % Neut # (Auto) 15.03 H (1.40-6.50) K/uL Lymph # (Auto) 1.67 (1.20-3.40) K/uL Rapides # (Auto) 1.79 H (0.11-0.59) K/uL Eos # (Auto) 0.03 (0.00-0.50) K/uL Baso # (Auto) 0.09 (0.00-0.20) K/uL Immature Gran # (Auto) 0.06 (0.01-0.20) K/uL POC Sodium 137 (135-144) mmol/L Sodium 139 (136-145) mmol/L POC Potassium 3.6 (3.3-5.0) mmol/L Potassium 3.7 (3.5-5.1) mmol/L POC Chloride 102 (101-112) mmol/L Chloride 103 (98-107) mmol/L Carbon Dioxide 27 (21-32) mmol/L POC Total CO2 24 (24-31) mmol/L Anion Gap 9 (3-11) POC Anion Gap 16.0 (16-25) mmol/L POC BUN 9 (7-18) mg/dl BUN 10 (6-23) mg/dl Creatinine 0.79 (0.6-1.4) mg/dl POC Creatinine 0.9 (0.6-1.3) mg/dl Est Cr Clr Drug Dosing 80.4 ml/min eGFR 99.82 BUN/Creatinine Ratio 12.7 (10-20) Glucose 113 H (70-99(Fasting)) mg/dl POC Glucose (other) 115 H (70-99) mg/dl Calcium 9.2 (8.6-10.3) mg/dl POC Ioniz Calcium Eben 1.15 (1.12-1.32) mmol/l Total Bilirubin 0.9 (0.2-1.0) mg/dl AST 25 (13-39) U/L ALT 28 (7-52) U/L Alkaline Phosphatase 64 (34-104) U/L Total Protein 6.6 (6.0-8.3) gm/dl Albumin 4.1 (3.4-5.0) gm/dl Globulin 2.5 (2.5-4.0) gm/dl Albumin/Globulin Ratio 1.6 (0.9-2) Lipase 51 (11-82) U/L Administered Medications Discontinued Medications Sodium Chloride (Nss) 1,000 mls @ 999 mls/hr IV .Q1H1M ONE Stop: 08/01/25 16:39 Last Admin: 08/01/25 15:44 Dose: 999 mls/hr Documented By: ELVIN Piperacillin Sod/Tazobactam Sod (Zosyn) 4.5 gm in 100 mls @ 200 mls/hr IV NOW ONE; Protocol Stop: 08/01/25 16:54 Last Admin: 08/01/25 16:31 Dose: 200 mls/hr Documented By: ALTON Ioversol (Optiray 320 100ml) 90 ml IV ONCE ONE Stop: 08/01/25 16:17 Last Admin: 08/01/25 16:16 Dose: 90 ml Documented By: ZEENAT Imaging Data Radiologist's Impression: Abdomen/Pelvis CT 08/01/25 15:24 EXAMINATION: CT of the abdomen and pelvis performed after the administration of IV contrast TECHNIQUE: Helical CT images from the lung bases through the symphysis pubis were obtained with contrast. Coronal and sagittal reformatted images were generated at a workstation for further assessment. Dose reduction techniques were achieved by using automatic exposure control and/or adjustment of mA and/or kV according to patient size and/or use of iterative reconstruction technique. COMPARISON: 06/07/2025 HISTORY: Abdominal pain FINDINGS: Lower chest: No consolidation. No pleural effusion or pneumothorax. Liver: No suspicious liver lesions. Portal veins appear patent. Gallbladder: No gallstones. No evidence of acute cholecystitis. Spleen: Normal size. Pancreas: No suspicious pancreatic lesions. The pancreatic duct is not dilated. Adrenal glands: No adrenal nodules. Kidneys: No hydronephrosis or obstructing renal stones. Bladder / Pelvic organs: Unremarkable. Bowel: No bowel obstruction. Redemonstrated findings of prominent wall thickening of the sigmoid colon, related to prior diverticulitis. There is more well-defined edema within the wall. The surrounding inflammatory fat stranding on prior has significantly decreased. No associated free air or abscess to suggest perforation. The appendix is not visualized. There is prominent wall thickening involving the rugae throughout the stomach. Lymph nodes: No retroperitoneal, mesenteric, or pelvic lymphadenopathy. Peritoneum / Retroperitoneum: No free fluid or air within the abdomen. Vessels: No infrarenal aortic aneurysm. Bones and soft tissues: No suspicious lesion in the bones. IMPRESSION: Evolutionary changes of sigmoid diverticulitis, with continued prominent wall thickening and edema, and decreased inflammatory fat stranding from prior. There is diffuse prominent wall thickening of the stomach, greater than usual, which may be seen with gastritis, or Menetrier disease. Electronically signed by Jignesh Patricia 08-01-2025 4:48 PM Discharge Plan Visit Data Chief Complaint: Abdominal Pain Stated Complaint: DIVERTICULITIS, ABD PAIN ED Provider: Florin Tinsley Discharge Problem: Diverticulitis Patient Disposition: Being Evaluated by Hospitalist Condition: Fair Forms Stand Alone Forms: [employer] Prescriptions Prescriptions: No Action magnesium aspart,citrate,oxide 400 mg magnesium capsule 400 mg PO DAILY potassium chloride 20 mEq tablet extended release 20 meq PO DAILY esomeprazole magnesium 40 mg capsule,delayed release(DR/EC) 40 mg PO QAM multivit with min-folic acid [Adult Multivitamin Gummies] 200 mcg Tablet,Chewable 200 mcg PO QAM metoprolol succinate 50 mg tablet extended release 24 hr 75 mg PO QAM diltiazem HCl 300 mg capsule,extended release 24hr 300 mg PO QAM losartan 25 mg tablet 12.5 mg PO QAM sildenafil 100 mg tablet 100 mg PO DIRECTED PRN (Reason: Sexual Activity) Referrals Referrals: Familia Torres DO [Primary Care Provider] -
[2025-08-01 15:45] LABS: Hematocrit (blood only) 41.4 % (42.0-52.0); Hemoglobin 15.1 g/dl (14.0-18.0); Immature Granulocytes # (auto) 0.06 K/uL (0.01-0.20); Immature Granulocytes % (auto) 0.3 %; Mean Corpuscular Hemoglobin 33.9 pg (25.0-34.0); Mean Corpuscular Volume 92.8 fL (80.0-100.0); Platelet Count 327 K/uL (130-400); RDW Standard Deviation 41.9 fL (36.4-46.3); Red Blood Count 4.46 M/uL (4.70-6.10); White Blood Count 18.67 K/ul (4.8-10.8)
[2025-08-01 16:03] LABS: Alanine Aminotransferase 28.0 U/L (7-52); Albumin Globulin Ratio 1.6 (0.9-2); Albumin Level 4.1 gm/dl (3.4-5.0); Alkaline Phosphatase 64.0 U/L (34-104); Anion Gap 9.0 (3-11); Bilirubin,Total 0.9 mg/dl (0.2-1.0); Blood Urea Nitrogen 10.0 mg/dl (6-23); Calcium 9.2 mg/dl (8.6-10.3); Carbon Dioxide 27.0 mmol/L (21-32); Chloride 103.0 mmol/L (98-107); Creatinine Clr Calc Pharmacy 80.4 ml/min; Globulin 2.5 gm/dl (2.5-4.0); Glucose 113.0 mg/dl (70-99(Fasting)); Lipase 51.0 U/L (11-82); Potassium 3.7 mmol/L (3.5-5.1); Sodium 139.0 mmol/L (136-145); Total Protein 6.6 gm/dl (6.0-8.3)
[2025-08-01] MEDS: OPTIRAY 320 100ml IV ONE (16:16)
[2025-08-01] MEDS: PIPERACILLIN/TAZOBACTAM 4.5 GM/100 ML BAG IV ONE (16:31)
--- NOTE | 2025-08-01 16:48 | CT Scan Report ---
EXAMINATION: CT of the abdomen and pelvis performed after the administration of IV contrast TECHNIQUE: Helical CT images from the lung bases through the symphysis pubis were obtained with contrast. Coronal and sagittal reformatted images were generated at a workstation for further assessment. Dose reduction techniques were achieved by using automatic exposure control and/or adjustment of mA and/or kV according to patient size and/or use of iterative reconstruction technique. COMPARISON: 06/07/2025 HISTORY: Abdominal pain FINDINGS: Lower chest: No consolidation. No pleural effusion or pneumothorax. Liver: No suspicious liver lesions. Portal veins appear patent. Gallbladder: No gallstones. No evidence of acute cholecystitis. Spleen: Normal size. Pancreas: No suspicious pancreatic lesions. The pancreatic duct is not dilated. Adrenal glands: No adrenal nodules. Kidneys: No hydronephrosis or obstructing renal stones. Bladder / Pelvic organs: Unremarkable. Bowel: No bowel obstruction. Redemonstrated findings of prominent wall thickening of the sigmoid colon, related to prior diverticulitis. There is more well-defined edema within the wall. The surrounding inflammatory fat stranding on prior has significantly decreased. No associated free air or abscess to suggest perforation. The appendix is not visualized. There is prominent wall thickening involving the rugae throughout the stomach. Lymph nodes: No retroperitoneal, mesenteric, or pelvic lymphadenopathy. Peritoneum / Retroperitoneum: No free fluid or air within the abdomen. Vessels: No infrarenal aortic aneurysm. Bones and soft tissues: No suspicious lesion in the bones. IMPRESSION: Evolutionary changes of sigmoid diverticulitis, with continued prominent wall thickening and edema, and decreased inflammatory fat stranding from prior. There is diffuse prominent wall thickening of the stomach, greater than usual, which may be seen with gastritis, or Menetrier disease. Electronically signed by Jignesh Patricia 08-01-2025 4:48 PM
--- NOTE | 2025-08-01 17:48 | History & Physical Report ---
Date of Service August 01, 2025 Assessment & Plan (1) Diverticulitis: Plan: Patient is 65 year old male with PMH HTN, COPD, tobacco use, history of atrial fibrillation/PSVT presented to ER with c/o left lower abdominal pain x couple of days. Denies fever/chills, N/V/D/C. [facility] hospitalization 06/07/2025-06/09/2025 for diverticulitis initially treated with IV Zosyn, discharged on Augmentin with improvement Today in ER afebrile, vitals stable. WBC: 18 CT abdomen pelvis: Evolutionary changes of sigmoid diverticulitis, with continued prominent wall thickening and edema, and decreased inflammatory fat stranding from prior. There is diffuse prominent wall thickening of the stomach, greater than usual, which may be seen with gastritis In ER given 1L NSS, Zosyn Will continue Zosyn IVF Clear liquid diet and advance as able Continue home PPI Patient reports has an appointment with [facility] next week for discussion of colonoscopy CBC, BMP in am (2) Hypertension: (3) Paroxysmal atrial fibrillation: Plan: H/O PAF, H/O PSVT Continue losartan, metoprolol succinate, diltiazem (4) Emphysema of lung: (5) Tobacco abuse: Plan: No sign COPD exacerbation at this time Smokes 7 cigarettes daily. Considering tobacco cessation in future. Denies nicotine patch (6) Alcohol use: Plan: Reported drinks 6 beers daily. Last drink reported yesterday Denies history ETOH withdrawal Monitor for ETOH withdrawal DVT Prophylaxis SQ Lovenox Admit med surg Full Code as per discussion with pt Follows with Dr Torres for routine care Pt was seen and care coordinated with Dr Henriquez. See addendum I spent a total of 60 minutes reviewing notes, outpatient records, labs, medication, coordinating, documenting and providing care for this patient excluding time spent in the performance of separately billed services and excluding time spent by another provider/QHP. History of Present Illness Chief Complaint: abdominal pain Primary Care Provider: Familia Torres DO Patient is 65 year old male with PMH HTN, COPD, tobacco use, history of atrial fibrillation/PSVT presented to ER with c/o left lower abdominal pain x couple of days. Per inpatient chart review [facility] hospitalization 06/07/2025-06/09/2025 for diverticulitis initially treated with IV Zosyn, discharged on Augmentin. Patient reports abdominal pain improved but he felt like he was never completely back to baseline. States aching intermittent pain to left lower quadrant past couple of days with increased pain today. Reports drinks 6 beers daily. Last drink was last night. Denies history withdrawal, DT's or seizures. Reports clears his throat constantly as he reports chronic allergies but otherwise denies cough. Denies nausea, vomiting, diarrhea, fever or chills, MANNING, dizziness, syncope, CP, SOB, palpitations, sore throat, weakness, edema, rashes, urinary symptoms. Allergies Allergy/AdvReac Type Severity Reaction Status Date / Time No Known Allergies Allergy Verified 08/01/25 16:52 Home Medications Medication Instructions Recorded Confirmed Type esomeprazole magnesium 40 mg 40 mg PO QAM 05/27/19 08/01/25 History capsule,delayed release multivitamin with minerals-folic 200 mcg PO QAM 05/27/19 08/01/25 History acid 200 mcg chewable tablet (Adult Multivitamin Gummies) metoprolol succinate 50 mg 75 mg PO QAM 12/24/21 08/01/25 History tablet,extended release 24 hr diltiazem HCl 300 mg 300 mg PO QAM 06/07/25 08/01/25 History capsule,extended release 24 hr losartan 25 mg tablet 12.5 mg PO QAM 06/07/25 08/01/25 History magnesium aspart,citrate,oxide 400 mg PO DAILY 06/28/25 08/01/25 History potassium chloride 20 mEq 20 meq PO DAILY 06/28/25 08/01/25 History tablet,extended release sildenafil 100 mg tablet 100 mg PO DIRECTED PRN Sexual 08/01/25 08/01/25 History Activity Past Med/Surg History Problem List Alcohol use Diverticulitis (Acute) Emphysema of lung Tobacco abuse Pulmonary nodule Paroxysmal atrial fibrillation Electrolyte abnormality History of atrial fibrillation COPD (chronic obstructive pulmonary disease) Hypertension Acute diverticulitis (Acute) Contusion of abdominal wall (Acute) Medical History No pertinent family history Medial meniscus tear Surgical History No pertinent past surgical history Social History Smoking Status: Current every day smoker Tobacco Type: Cigarettes packs per day: 0.50; Cigarettes Per Day: 7; Do You Dip or Chew Tobacco: Yes; Hx Alcohol Use: Yes (6 beers daily) Alcohol type: beer Hx Substance Use: No Preferred Language: Albanian [employer] Required: No Beliefs That Will Affect Care: None Current Living Situation: Spouse Feels Safe at Home: Yes Review of Systems Review of Systems: All systems reviewed & are unremarkable except as noted in HPI & below Physical Exam 2 Physical Exam: General: no distress, WDWN Head: normocephalic, atraumatic Eyes: conjunctiva non-injected, anicteric ENT: normal inspection external ears, nose, mucous membranes moist Neck: supple, trachea midline Lungs: clear, no respiratory distress, no wheezing/rhonchi/rales CV: RRR, no murmur, no pretibial edema Abd: normal BS, soft, +tender to palpation LLQ without rebound Ext: no cyanosis, no calf tenderness Neuro: A&O x 3, no focal deficits noted, normal affect Skin: warm, dry Results & Data Results & Data Vital Signs (Past 12 Hours) Vital Signs Temp Pulse Pulse Resp BP BP Pulse Ox 08/01/25 17:11 89 16 145/96 H 95 08/01/25 17:11 08/01/25 15:45 90 08/01/25 15:26 90 20 96 08/01/25 15:26 90 24 139/97 95 08/01/25 15:15 36.5 C 101 H 20 124/80 97 O2 Del Method 08/01/25 17:11 Room Air 08/01/25 17:11 Room Air 08/01/25 15:45 08/01/25 15:26 Room Air 08/01/25 15:26 Room Air 08/01/25 15:15 Room Air Laboratory Results Short CBC 08/01/25 Range/Units 15:30 WBC 18.67 H (4.8-10.8) K/ul Hgb 15.1 (14.0-18.0) g/dl Hct 41.4 L (42.0-52.0) % Plt Count 327 (130-400) K/uL BMP 08/01/25 15:30 Sodium 139 Potassium 3.7 Chloride 103 Carbon Dioxide 27 BUN 10 Creatinine 0.79 Glucose 113 H Calcium 9.2 Liver Function 08/01/25 Range/Units 15:30 Total Bilirubin 0.9 (0.2-1.0) mg/dl AST 25 (13-39) U/L ALT 28 (7-52) U/L Alkaline Phosphatase 64 (34-104) U/L Albumin 4.1 (3.4-5.0) gm/dl Diagnostic Findings Abdomen/Pelvis CT 08/01/25 15:24 EXAMINATION: CT of the abdomen and pelvis performed after the administration of IV contrast TECHNIQUE: Helical CT images from the lung bases through the symphysis pubis were obtained with contrast. Coronal and sagittal reformatted images were generated at a workstation for further assessment. Dose reduction techniques were achieved by using automatic exposure control and/or adjustment of mA and/or kV according to patient size and/or use of iterative reconstruction technique. COMPARISON: 06/07/2025 HISTORY: Abdominal pain FINDINGS: Lower chest: No consolidation. No pleural effusion or pneumothorax. Liver: No suspicious liver lesions. Portal veins appear patent. Gallbladder: No gallstones. No evidence of acute cholecystitis. Spleen: Normal size. Pancreas: No suspicious pancreatic lesions. The pancreatic duct is not dilated. Adrenal glands: No adrenal nodules. Kidneys: No hydronephrosis or obstructing renal stones. Bladder / Pelvic organs: Unremarkable. Bowel: No bowel obstruction. Redemonstrated findings of prominent wall thickening of the sigmoid colon, related to prior diverticulitis. There is more well-defined edema within the wall. The surrounding inflammatory fat stranding on prior has significantly decreased. No associated free air or abscess to suggest perforation. The appendix is not visualized. There is prominent wall thickening involving the rugae throughout the stomach. Lymph nodes: No retroperitoneal, mesenteric, or pelvic lymphadenopathy. Peritoneum / Retroperitoneum: No free fluid or air within the abdomen. Vessels: No infrarenal aortic aneurysm. Bones and soft tissues: No suspicious lesion in the bones. IMPRESSION: Evolutionary changes of sigmoid diverticulitis, with continued prominent wall thickening and edema, and decreased inflammatory fat stranding from prior. There is diffuse prominent wall thickening of the stomach, greater than usual, which may be seen with gastritis, or Menetrier disease. Electronically signed by Jignesh Patricia 08-01-2025 4:48 PM Supervising Physician Co-Signing Physician Notes Patient seen and examined at bedside. Presenting with recurrent LLQ pain, no other symptoms. Drinks 6 beers per night. On exam, mild LLQ tenderness, no peritoneal signs, otherwise unremarkable exam. Hypertensive, elevated leukocytosis in setting of recurrent diverticulitis, CT abdomen/pelvis with recurrent inflammation in sigmoid colon consistent with diverticulitis. Patient presenting with recurrent diverticulitis, which appears mild in severity. Start fluids, clear liquid diet for bowel rest. Patient requesting antibiotics. Given recurrent nature of diverticulitis, will need colonoscopy outpatient outside of acute period to evaluate tissue and rule out other etiologies such as malignancy/IBD. Alcohol consumption leading to dehydration and poor bowel regiment likely contributing factor to recurrent diverticulitis. Likely discharge in AM pending medical stability. I have seen and discussed the case with the collaborating advanced practitioner. I agree with the above H&P. I have reviewed and confirmed the patients medical history, the findings on physical examination, and the patients diagnosis and treatment plan with Radha Reich PA-C and agree with the information documented. I spent a total of 20 minutes coordinating, documenting, and providing care for this patient excluding time spent in the performance of separately billed serv ices. All of the aforementioned completed outside of collaborating with the assigned advanced practitioner for a full treatment plan. I have reviewed the advanced practitioner's documentation, and I agree with, and take responsibility for the plan of care
[2025-08-01] MEDS ORDERED: LORazepam Inj 1 MG in SYRINGE 0.5 ML IV PRN (20:18)
[2025-08-01] MEDS ORDERED: ONDANSETRON INJ 2 MG/ML 2 ML VIAL IV PRN (20:18)
[2025-08-01] MEDS ORDERED: POLYETHYLENE (MIRALAX) 17 GM PACK PO PRN (20:18)
[2025-08-01] MEDS ORDERED: ACETAMINOPHEN 325 MG TAB PO PRN (20:18)
[2025-08-01] MEDS: ENOXAPARIN INJ 40 MG/0.4 ML SYR SQ SCH (20:33)
[2025-08-01] MEDS: SODIUM CHLORIDE 0.9% 1,000 ML IV SCH (20:34)
[2025-08-01] MEDS: PIPERACILLIN/TAZOBACTAM 4.5 GM/100 ML BAG IV SCH (21:31)
[2025-08-01] MEDS: MELATONIN 3 MG TAB PO PRN (22:11)
[2025-08-02 07:25] VITALS: TEMP 98.8
[2025-08-02] MEDS: THIAMINE HCL 100 MG TAB PO SCH (07:36)
[2025-08-02] MEDS: LOSARTAN POTASSIUM 25 MG TAB PO SCH (07:37)
[2025-08-02] MEDS: FOLIC ACID 1 MG TAB PO SCH (07:37)
[2025-08-02] MEDS: METOPROLOL SUCC 25MG EXT REL TAB PO SCH (07:37)
[2025-08-02] MEDS: MULTIVITAMIN TAB PO SCH (07:37)
[2025-08-02] MEDS: INFLUENZA VACC TS2025-26(6m+)/PF (IIV3) 0.5mL Syr IM ONE (07:56)
[2025-08-02] MEDS: POTASSIUM CHLORIDE CRTAB 20 MEQ TABCR PO SCH (08:05)
[2025-08-02 08:40] LABS: Hematocrit (blood only) 37.9 % (42.0-52.0); Hemoglobin 13.7 g/dl (14.0-18.0); Immature Granulocytes # (auto) 0.03 K/uL (0.01-0.20); Immature Granulocytes % (auto) 0.3 %; Mean Corpuscular Hemoglobin 34.2 pg (25.0-34.0); Mean Corpuscular Volume 94.5 fL (80.0-100.0); Platelet Count 273 K/uL (130-400); RDW Standard Deviation 42.4 fL (36.4-46.3); Red Blood Count 4.01 M/uL (4.70-6.10); White Blood Count 8.98 K/ul (4.8-10.8)
[2025-08-02 08:58] LABS: Anion Gap 10.0 (3-11); Blood Urea Nitrogen 6.0 mg/dl (6-23); Calcium 8.8 mg/dl (8.6-10.3); Carbon Dioxide 25.0 mmol/L (21-32); Chloride 103.0 mmol/L (98-107); Creatinine Clr Calc Pharmacy 76.9 ml/min; Glucose 107.0 mg/dl (70-99(Fasting)); Potassium 3.2 mmol/L (3.5-5.1); Sodium 138.0 mmol/L (136-145)
--- NOTE | 2025-08-02 11:07 | Discharge Summary ---
Discharge Summary Date of Service August 02, 2025 Principal Dx & Hospital Course #1 = Principal Diagnosis (1) Diverticulitis: (2) Tobacco abuse: (3) Paroxysmal atrial fibrillation: (4) COPD (chronic obstructive pulmonary disease): (5) Hypertension: (6) Alcohol use: Plan Patient 65-year-old gentleman presents to the emergency room with increasing abdominal pain and discomfort for the last few days. Patient known history of diverticulitis in the past. Imaging in the emergency room was consistent with diverticulitis and gastritis. Patient was admitted to the hospital. Placed on IV antibiotics and IV fluids. Initially made NPO. His symptoms significantly improved. His diet was advanced to clear liquids and then to low fiber. His abdominal discomfort resolved. WBCs normalized. He already has output indication appointment to follow-up with gastroenterology from his previous bout of diverticulitis back in May. Recommend that he maintain that appointment. Also follow-up with his PCP. Notes For Next Care Provider Outpatient follow-up with GI Medication Changes From Visit Augmentin x 10 days Admission HPI Per Admitting Provider Patient is 65 year old male with PMH HTN, COPD, tobacco use, history of atrial fibrillation/PSVT presented to ER with c/o left lower abdominal pain x couple of days. Per inpatient chart review [facility] hospitalization 06/07/2025-06/09/2025 for diverticulitis initially treated with IV Zosyn, discharged on Augmentin. Patient reports abdominal pain improved but he felt like he was never completely back to baseline. States aching intermittent pain to left lower quadrant past couple of days with increased pain today. Reports drinks 6 beers daily. Last drink was last night. Denies history withdrawal, DT's or seizures. Reports clears his throat constantly as he reports chronic allergies but otherwise denies cough. Denies nausea, vomiting, diarrhea, fever or chills, MANNING, dizziness, syncope, CP, SOB, palpitations, sore throat, weakness, edema, rashes, urinary symptoms. Admission Exam Per Admitting Provider See H&P Discharge Exam Constitutional: Alert HEENT: Mucous membranes moist. Lungs: Clear to auscultation, decreased, no wheezes rales or rhonchi CV: S1-S2, regular Abdomen: Soft,, no distention, no guarding, no rigidity, very minimal tenderness left lower quadrant Extremities: No significant edema Neuro: No focal deficits Psych: Cooperative, normal mood Updated Medication List Medication Instructions Recorded Confirmed Type esomeprazole magnesium 40 mg 40 mg PO QAM 05/27/19 08/01/25 History capsule,delayed release multivitamin with minerals-folic 200 mcg PO QAM 05/27/19 08/01/25 History acid 200 mcg chewable tablet (Adult Multivitamin Gummies) metoprolol succinate 50 mg 75 mg PO QAM 12/24/21 08/01/25 History tablet,extended release 24 hr diltiazem HCl 300 mg 300 mg PO QAM 06/07/25 08/01/25 History capsule,extended release 24 hr losartan 25 mg tablet 12.5 mg PO QAM 06/07/25 08/01/25 History magnesium aspart,citrate,oxide 400 mg PO DAILY 06/28/25 08/01/25 History potassium chloride 20 mEq 20 meq PO DAILY 06/28/25 08/01/25 History tablet,extended release sildenafil 100 mg tablet 100 mg PO DIRECTED PRN Sexual 08/01/25 08/01/25 History Activity amoxicillin 875 mg-potassium 1 tab PO BID #20 tabs 08/02/25 Rx clavulanate 125 mg tablet Hospital Stay Data Consultations 08/01/25 17:34 ED Decision to Admit Stat Diagnostic Imagining Performed 08/01/25 15:24 CT abd pelvis IV con only Stat Reviewed imaging, laboratory and diagnostic studies. Pertinent findings as below. WBCs 8.9, significantly improved Hemoglobin 13.7 Platelets of 273 Potassium 3.2 will be replaced prior to discharge Other electrolytes stable Creatinine 0.82 Pending Results Patient Have Any Pending Studies at Discharge: No Discharge Instructions Given to Patient (Per Discharging Provider) Keep appointment with manometer technician Complete course of antibiotics Total Time Total Time Spent Total Time Spent (In Minutes): 26
[2025-08-02] MEDS: POTASSIUM CHLORIDE CRTAB 20 MEQ TABCR PO STA (11:22)
[2025-08-02 11:39] VITALS: BP 133/72; PULSE 82; RESP 20; O2SAT 94
== END 2025-08-02 13:48 | disposition home or self-care (01) ==
LOC: ED 15:11 → 3W 15:11 → SUATTDRO 17:52 → 3W 20:04